=== PATIENT | female | born 1975 | race African-American/Black ===

== ENCOUNTER 2018-12-16 11:49 | Emergency (ER) | payer OTHER ==
[~2018-12-16] VITALS: Ht 167.6 cm; Wt 67.1 kg
[2018-12-16 12:58] LABS: PLATELET COUNT 284 K/uL (152-353)
[2018-12-16 13:19] LABS: POTASSIUM 4.1 mmol/L (3.6-5.2)
[2018-12-16 14:24] VITALS: BP 102/53; TEMP 98.1
== END 2018-12-16 14:24 | disposition home or self-care (01) ==
LOC: ED 11:49
PROVIDERS: Family Medicine
DX: M79.18 Myalgia, other site (principal); N64.52 Nipple discharge
CPT/HCPCS: 80053; 81000; 81025; 85027; 99283

== ENCOUNTER 2020-08-14 10:01 | Outpatient (CLI) | payer OTHER | END 2020-08-14 20:54 | disposition home or self-care (01) | LOC: MAMMO 10:01 | PROVIDERS: ATTEND Nurse Practitioner Family | DX: Z12.31 Encounter for screening mammogram for malignant neoplasm of breast (principal) ==

== ENCOUNTER 2021-03-23 22:05 | Emergency (ER) | payer OTHER ==
[~2021-03-23] VITALS: Ht 165.1 cm; Wt 72.6 kg
[2021-03-23 22:30] VITALS: TEMP 99.4
[2021-03-23 23:43] VITALS: BP 130/69
== END 2021-03-23 23:43 | disposition home or self-care (01) ==
LOC: ED 22:05
DX: F41.8 Other specified anxiety disorders (principal)
CPT/HCPCS: 99284

== ENCOUNTER 2021-12-03 23:15 | Emergency (ER) | payer OTHER ==
[~2021-12-03] VITALS: Ht 165.1 cm; Wt 72.1 kg
[2021-12-04 00:21] LABS: PLATELET COUNT 392 K/uL (152-353)
[2021-12-04 00:24] LABS: POTASSIUM 3.7 mmol/L (3.6-5.2)
[2021-12-04 00:38] LABS: PARTIAL THROMBOPLASTIN TIME 24.3 SECONDS (24.5-33.6)
[2021-12-04 02:13] VITALS: BP 122/64; TEMP 97.8
== END 2021-12-04 02:13 | disposition home or self-care (01) ==
LOC: ED 23:15
PROVIDERS: Hospitalist
DX: R60.0 Localized edema (principal)
CPT/HCPCS: 36415; 80053; 81025; 82550; 83880; 84484; 85027; 85610; 85730; 93005; 96374; 99284; J1940